=== PATIENT | male | born 1945 | race Caucasian/White ===

== ENCOUNTER 2024-05-11 07:23 | Emergency (ER) | payer BC, MEDICAID ==
[~2024-05-11] VITALS: Ht 188 cm; Wt 77.5 kg
[~2024-05-11 07:23] MED LIST: ASPI-611 PO; CLON-527 PO; CLON-850 PO; CLON0.5T23 PO; HYDR-4353 PO; LEVO112T52 PO
[2024-05-11 07:26] VITALS: BP 124/85; PULSE 95; RESP 18; O2SAT 94
[2024-05-11 08:30] VITALS: TEMP 97.7
== END 2024-05-11 08:32 | disposition left against medical advice (07) ==
LOC: ER 07:24
DX: R05.9 Cough, unspecified (principal); I11.0 Hypertensive heart disease with heart failure; I50.9 Heart failure, unspecified; I48.91 Unspecified atrial fibrillation; J44.9 Chronic obstructive pulmonary disease, unspecified; F41.9 Anxiety disorder, unspecified; E07.9 Disorder of thyroid, unspecified; F10.10 Alcohol abuse, uncomplicated; Z87.442 Personal history of urinary calculi; Y90.9 Presence of alcohol in blood, level not specified; Z79.82 Long term (current) use of aspirin; Z79.899 Other long term (current) drug therapy
CPT/HCPCS: 71045; 87502; 87503; 99284